=== PATIENT | female | born 1930 | race Caucasian/White ===

== ENCOUNTER 2017-03-26 15:02 | Inpatient (IN) | payer OTHER ==
--- NOTE | ~2017-03-26 | CR72 ---
[facility] A Service of [facility] & [facility] RADIOLOGY TEXT RESULTS PATIENT: HEATH DALTON LOCATION: [facility] : [birth year] UNIT #: [id number] AGE: [address]: Rolando Cox MD SEX: F ORDER DR: [id number] [facility] [address] [place], [place] [address] [id number] E MR#: [id number] Acc #: [id number] NAME: HEATH DALTON. : 1930 SEX: F STUDY DATE/TIME: 03/26/2017 14:52 UNIT: [facility] ROOM: STUDY DESCRIPTION: CR Chest Single View Portable Attending Physician: Rolando Cox M.D. Ordering Physician: Hermelindo Reis M.D. Primary Care Physician: Lachelle Moran M.D. MEDICAL IMAGING REPORT This report is preliminary unless electronic signature is present EXAM Frontal chest 03/26/2017 INDICATIONS 86-year-old female with fever, chills, short of air and cough symptoms 2 days, hypertension. TECHNIQUE Frontal chest compared with 04/24/2014. FINDINGS Cardiac silhouette borderline in size and stable. The vascularity is normal. Lung volumes are low and there is some minimal atelectasis in the right and left lung bases but no effusion or dense consolidation. No pneumothorax. IMPRESSION 1. Borderline cardiac size and low lung volumes, otherwise negative frontal chest. No significant change. Dictated by... Tyler Goodman M.D. THIS IS AN ELECTRONICALLY VERIFIED REPORT Tyelr Goodman M.D. at 03/26/2017 5:27 PM CLEO/melly TD: 03/26/2017 16:39 JOB #: [id number] MEDICAL IMAGING REPORT Page 1 of 1 COPY
--- NOTE | ~2017-03-26 | EKG ---
PATIENT: HEATH DALTON UNIT #: [id number] Ventricular Rate: 124 BPM Atrial Rate: 124 BPM P-R Interval: 200 ms QRS Duration: 108 ms Q-T Interval: 316 ms QTC Calculation(Bezet): 453 ms P [place]: 49 degrees Calculated R [place]: 38 degrees Calculated T [place]: 104 degrees Diagnosis Line: Sinus tachycardia Diagnosis Line: Incomplete left bundle branch block Diagnosis Line: ST and T wave abnormality, consider lateral ischemia Diagnosis Line: Abnormal ECG Diagnosis Line: When compared with ECG of 21-APR-2015 09:12, Diagnosis Line: Premature ventricular complexes are no longer Diagnosis Line: Present Diagnosis Line: QRS axis Shifted right Diagnosis Line: Confirmed by DAWOOD HADDAD MD ([id number]) on Diagnosis Line: 03/26/2017 4:40:56 PM INTERPRETING MD: BOO REICH
--- NOTE | ~2017-03-26 | DS ---
Unit #: [id number] #: [id number] Patient: HEATH BURDICK [id number] [address] [place], [place] [address] [id number] I MR#: [id number] NAME: HEATH BURDICK. ROOM: 557 Age: 86 Sex: F Admission Date: 03/26/2017 : 1930 Discharge Date: 03/27/2017 Attending Physician: Onelia Tavarez M.D. Primary Care Physician: Lachelle Moran M.D. DISCHARGE SUMMARY REVISED REPORT (See Addendum) PRINCIPAL DIAGNOSES 1. Sepsis, secondary to gram-negative sylvia urinary tract infection with associated bacteremia. 2. Hypovolemic/hyponatremia. 3. Mild thrombocytopenia. 4. Hypertension. 5. Hyperglycemia. 6. Hypothyroidism. 7. Hyperlipidemia. 8. Mild protein malnutrition. 9. Obesity. CONSULTANTS None. PROCEDURES Chest x-ray on March 26, 2017, with low lung volumes, no other acute findings. CLINICAL HISTORY AND HOSPITAL COURSE Ms. Burdick is an 86-year-old female, who presents to the emergency department with fever, and chills. Please refer to the H and P for further details. The patient underwent urinalysis concerning for urinary tract infection. She did have a fever of 102 at home, and was also found to be tachycardic upon presentation. She was subsequently admitted. The patient was placed on IV fluids, and empiric Rocephin. Fever has resolved and today, she states that she feels fine; however, 2 of 2 blood cultures done upon presentation are growing gram-negative rods. I did discuss this extensively with the patient and in addition to her daughter, and the patient states that she feels fine and she is going to go home. I have discussed with the patient, I am going to place on Vantin therapy for 2 weeks, but I do not recommend discharge, as she must leave the hospital against medical advice. Again, I placed her on Vantin. I will follow-up cultures tomorrow and contact family if the antibiotics are inappropriate. I am also going to repeat blood cultures this morning, if the patient is agreeable. Please note: The patient has had some significant hyperglycemia throughout hospitalization with blood sugars running 170 to 190. Unit #: [id number] #: [id number] Patient: HEATH BURDICK Hemoglobin A1C of blood and lab is currently pending, and this can be further evaluated as an outpatient. I was contacted by the patient's [id number] yesterday afternoon that the Vantin prescription is too expensive, and the patient was not willing to fill it. Given she received Rocephin earlier in the day, I felt it was safe to await cultures. I reviewed urine culture this morning, and this reveals what appears to be a pansensitive E-coli. Blood cultures themselves, however, are currently pending. I will continue to follow up blood cultures, but I have called the patient Omnicef 300 mg b.i.d. for 14 days, and contact the patient's [id number], Jojo Burdick. DISCHARGE CONDITION Stable. DISCHARGE STATUS Discharged home, but against medical advice. DISCHARGE MEDICATIONS 1. Vantin 200 mg p.o. b.i.d. for 14 days. 2. Diltiazem 180 mg daily. 3. Simvastatin 10 mg at bedtime. 4. Valsartan 325 mg daily. 5. Aspirin 81 mg daily. 6. Levothyroxine 50 mcg p.o. daily. DISCHARGE INSTRUCTIONS Patient instructed to follow a heart healthy low-carbohydrate diet. She can increase her activity as tolerated. FOLLOW UP The patient can present to the ER if she continues to feel bad or has recurrent fever; otherwise, she will follow-up with Dr. Moran 2 weeks. TIME SPENT ON DISCHARGE: 35 minutes. Dictated by... Paulina Courtney/sudhakar TD: 03/27/2017 22:22 JOB #: [id number] ADDENDUM Revisions and deletions made per instructions on . Dictated by... Paulina Courtney/marcus TD: 03/28/2017 12:27 JOB #: [id number] Unit #: [id number] #: [id number] Patient: HEATH BURDICK DISCHARGE SUMMARY Page 1 of 1 X Onelia Tavarez MD DISCHARGE SUMMARY
--- NOTE | ~2017-03-26 | HP ---
Unit #: [id number] #: [id number] Patient: HEATH DALTON [id number] [address] [address] [id number] I MR#: [id number] NAME: HEATH DALTON. ROOM: 38178 Age: 86 Sex: F Admission Date: 03/26/2017 : 1930 Attending Physician: Davi Griffiths M.D. Primary Care Physician: Lachelle Moran M.D. HISTORY AND PHYSICAL CHIEF COMPLAINT Weakness and chills for two days. HISTORY OF PRESENT ILLNESS The patient is an 86-year-old female with a history of hypertension and hyperlipidemia, brought to the emergency room with chills and weakness. The patient stated that patient has been having urinary frequency and urgency since Saturday. The patient also complained of fevers and chills. She denied any nausea and vomiting. The patient had a temperature of 102.1 in the emergency room. The patient was found to have a UTI and is being admitted for the above reasons. PAST MEDICAL HISTORY 1. Hyperlipidemia. 2. Hypertension. PAST SURGICAL HISTORY 1. Total abdominal hysterectomy. 2. Appendectomy. 3. Bladder repair. ALLERGIES Penicillin. HOME MEDICATIONS 1. Valsartan. 2. Diltiazem. 3. Cartia. 4. Simvastatin. 5. Levothyroxine. 6. Aspirin. FAMILY HISTORY Liver cancer. SOCIAL HISTORY She lives alone. She denies alcohol, tobacco, and any illicit drug abuse. REVIEW OF SYSTEMS A 14-point review of systems was performed and only pertinent positive findings are described above. The remaining are negative. PHYSICAL EXAMINATION GENERAL: Patient is lying in bed not in acute distress. Unit #: [id number] #: [id number] Patient: HEATH DALTON VITAL SIGNS: Temperature 98.8 and rectal is 102.1, pulse 132, respiratory rate 16, blood pressure 154/71, and saturating 95% on room air. HEENT: Head atraumatic, normocephalic. Pupils equal, round, and reactive to light and accommodation. Extraocular movements are intact. Dry mucous membranes. NECK: Supple. LUNGS: Decreased air entry at the bases. HEART: Regular rate and rhythm. ABDOMEN: Soft. Positive bowel sounds. No CVA tenderness. EXTREMITIES: No cyanosis, no clubbing. NEUROLOGIC: Alert, awake, and oriented. No gross focal motor deficit. DIAGNOSTIC STUDIES LABORATORY: Glucose 176, BUN 25, creatinine 1.1, sodium 130, potassium 3.7, chloride 100, bicarb 22, calcium 8.5, albumin 3.4, direct bilirubin 0.5, AST 28, ALT 26, and alkaline phosphatase 85. Lactic acid is 1.8. WBC 7.4, hemoglobin 15.2, hematocrit 45.4, platelets 139,000, and neutrophils 91.3. Urinalysis shows 3+ leukocyte esterase, positive nitrites, 2+ protein, 3+ blood, 5-10 urine RBCs, enumerable urine WBCs, and 4+ bacteria. IMAGING: Chest x-ray shows borderline cardiac size and low lung volumes, otherwise negative frontal chest. No significant change. ASSESSMENT 1. Urinary tract infection. 2. Hyponatremia. 3. Hypertension. PLAN Admit to observation with telemetry. Continue with IV fluids of normal saline at 75 mL/hour and antibiotic Rocephin 1 gram daily. Follow with urine culture. Repeat the labs again in the morning. Further recommendations will follow. Dictated by Paulina Khan TD: 03/26/2017 18:32 JOB #: [id number] HISTORY AND PHYSICAL Page 1 of 1 X X HISTORY AND PHYSICAL
--- NOTE | ~2017-03-26 | DS ---
Unit #: [id number] #: [id number] Patient: HEATH BURDICK [id number] [address] [place], [place] [address] [id number] I MR#: [id number] NAME: HEATH BURDICK. ROOM: 557 Age: 86 Sex: F Admission Date: 03/26/2017 : 1930 Discharge Date: 03/27/2017 Attending Physician: Onelia Tavarez M.D. Primary Care Physician: Lachelle Moran M.D. DISCHARGE SUMMARY PRINCIPAL DIAGNOSES 1. Sepsis, secondary to gram-negative sylvia urinary tract infection with associated bacteremia. 2. Hypovolemic/hyponatremia. 3. Mild thrombocytopenia. 4. Hypertension. 5. Hyperglycemia. 6. Hypothyroidism. 7. Hyperlipidemia. 8. Mild protein malnutrition. 9. Obesity. CONSULTANTS None. PROCEDURES Chest x-ray on March 26, 2017, with low lung volumes, no other acute findings. CLINICAL HISTORY AND HOSPITAL COURSE Ms. Burdick is an 86-year-old female, who presents to the emergency department with fever, and chills. Please refer to the H and P for further details. The patient underwent urinalysis concerning for urinary tract infection. She did have a fever of 102 at home, and was also found to be tachycardic upon presentation. She was subsequently admitted. The patient was placed on IV fluids, and empiric Rocephin. Fever has resolved and today, she states that she feels fine; however, 2 of 2 blood cultures done upon presentation are growing gram-negative rods. I did discuss this extensively with the patient and in addition to her daughter, and the patient states that she feels fine and she is going to go home. I have discussed with the patient, I am going to place on Vantin therapy for 2 weeks, but I do not recommend discharge, as she must leave the hospital against medical advice. Again, I placed her on Vantin. I will follow-up cultures tomorrow and contact family if the antibiotics are inappropriate. I am also going to repeat blood cultures this morning, if the patient is agreeable. Please note: The patient has had some significant hyperglycemia throughout hospitalization with blood sugars running 170 to 190. Hemoglobin A1C of blood and lab is currently pending, and this can be further evaluated as an outpatient. Unit #: [id number] #: [id number] Patient: HEATH BURDICK DISCHARGE CONDITION Stable. DISCHARGE STATUS Discharged home, but against medical advice. DISCHARGE MEDICATIONS 1. Vantin 200 mg p.o. b.i.d. for 14 days. 2. Diltiazem 180 mg daily. 3. Simvastatin 10 mg at bedtime. 4. Valsartan 325 mg daily. 5. Aspirin 81 mg daily. 6. Levothyroxine 50 mcg p.o. daily. DISCHARGE INSTRUCTIONS Patient instructed to follow a heart healthy low-carbohydrate diet. She can increase her activity as tolerated. FOLLOW UP The patient can present to the ER if she continues to feel bad or has recurrent fever; otherwise, she will follow-up with Dr. Moran 2 weeks. TIME SPENT ON DISCHARGE: 35 minutes. Dictated by... Onelia Tavarez M.D. ANTONIO/sudhakar TD: 03/27/2017 22:22 JOB #: [id number] DISCHARGE SUMMARY Page 1 of 1 X Onelia Tavarez MD X DISCHARGE SUMMARY
[2017-03-26 14:07] LABS: BASOPHIL% 0.3 % (0-2.5); EOSINOPHIL% 0.2 % (0.0-7.0); HEMATOCRIT 45.4 % (35.0-45.0); HEMOGLOBIN 15.2 gm/dL (12.0-16.0); LYMPHOCYTE# 0.4 X10e3 (1.0-3.5); LYMPHOCYTE% 5.6 % (17.0-45.0); MEAN CORPUSCULAR HEMOGLOBIN 32.5 PG (28-34); MEAN CORPUSCULAR HGB CONC 33.5 g/dL (30-36); MEAN PLATELET VOLUME 8.2 FL (6.5-11.5); MONOCYTE# 0.2 X10e3 (0-1.0); MONOCYTE% 2.6 % (3.0-12.0); NEUTROPHIL# 6.8 X10e3 (1.5-7.1); NEUTROPHIL% 91.3 % (40-75); PLATELET COUNT 139 X10e3 (140-420); RED BLOOD COUNT 4.68 X10e (3.90-5.30); RED CELL DISTRIBUTION WIDTH 13.8 % (11.0-15.5); WHITE BLOOD COUNT 7.4 X10e3 (4.0-10.5)
[2017-03-26 14:09] LABS: DIFF IND NO
[2017-03-26 14:27] LABS: ALBUMIN SERUM 3.4 g/dL (3.5-5.0); BILIRUBIN, DIRECT 0.4 mg/dL (0.0-0.2); BILIRUBIN,TOTAL 1.4 mg/dL (0.2-2.0); BUN/CREATININE RATIO 22.72; CALCIUM SERUM 8.5 mg/dL (8.4-10.2); CREATININE SERUM 1.1 mg/dL (0.6-1.4); GLOM FILT RATE Estimated 45.1 mL/min (>60); POTASSIUM 3.7 mmol/L (3.5-5.1); PROTEIN TOTAL SERUM 6.7 g/dL (6.0-8.3)
[~2017-03-26 15:02] MED LIST: ASPIRIN PO; CARDIZEM PO; CELEXA PO; DIOVAN PO; IBUPROFEN600 MG; IBUPROFEN600 MG PO; LIPITOR PO; NEXIUM PO; PHENERGAN25 MG PO; PRILOSEC20 MG PO; SIMVASTATIN20 MG PO; SYNTHROID PO; ZITHROMAX500 MG PO
[2017-03-26 15:33] LABS: URINE SOURCE CLEAN CATCH
[2017-03-26 15:39] LABS: URINE APPEARANCE TURBID; URINE BILIRUBIN NEG (NEG); URINE BLOOD 3+ (NEG); URINE COLOR YELLOW; URINE GLUCOSE NEG (NEG); URINE KETONE NEG (NEG); URINE LEUKOCYTE ESTERASE 3+ (NEG); URINE NITRATE POS (NEG); URINE PH 5.5 (5-8); URINE PROTEIN 2+ (NEG); URINE SPECIFIC GRAVITY 1.013 (1.003-1.035)
[2017-03-26 15:41] LABS: CULTURE INDICATED? YES; U HYALINE CASTS AUWI 0-2 /[LPF]; URINE BACTERIA AUWI 4+ (NEGATIVE); URINE SQUAMOUS EPITHELIAL CELL OCC /[HPF]; UWBCS1 AUWI INNUM (0-5)
[2017-03-26 16:02] LABS: POC - CKMB <1.0 ng/mL (0.0-7.9); POC - TROPONIN <0.05 ng/mL (<=0.05)
[2017-03-26] MEDS ORDERED: VALSARTAN320 MG PO (18:07)
[2017-03-26] MEDS ORDERED: SIMVASTATIN10 MG PO (18:08)
[2017-03-26] MEDS ORDERED: DILTIAZEM 24HR180 M1 PO (18:08)
[2017-03-26] MEDS ORDERED: LEVOTHYROXINE50 MCG PO (18:08)
[2017-03-26] MEDS ORDERED: ASPIRIN81 MG PO (18:08)
[2017-03-27 05:32] LABS: HEMATOCRIT 43.3 % (35.0-45.0); HEMOGLOBIN 14.4 gm/dL (12.0-16.0); MEAN CELL VOLUME 97.6 FL (83-96); MEAN CORPUSCULAR HEMOGLOBIN 32.4 PG (28-34); MEAN CORPUSCULAR HGB CONC 33.2 g/dL (30-36); MEAN PLATELET VOLUME 9.2 FL (6.5-11.5); RED BLOOD COUNT 4.44 X10e (3.90-5.30); WHITE BLOOD COUNT 8.8 X10e3 (4.0-10.5)
[2017-03-27 06:41] LABS: CALCIUM SERUM 8.2 mg/dL (8.4-10.2); GLOM FILT RATE Estimated 50.6 mL/min (>60)
== END 2017-03-27 12:35 | disposition left against medical advice (07) | DRG 872 ==
LOC: CED 15:02 → CEDOF 17:20 → C5B 19:58
PROVIDERS: Emergency Medicine; Internal Medicine
DX: A41.50 Gram-negative sepsis, unspecified (principal); D69.6 Thrombocytopenia, unspecified; N39.0 Urinary tract infection, site not specified; E86.1 Hypovolemia; E87.1 Hypo-osmolality and hyponatremia; E44.1 Mild protein-calorie malnutrition; I10 Essential (primary) hypertension; R73.9 Hyperglycemia, unspecified; E03.9 Hypothyroidism, unspecified; E78.5 Hyperlipidemia, unspecified; E66.9 Obesity, unspecified; Z90.710 Acquired absence of both cervix and uterus; Z88.0 Allergy status to penicillin; Z79.82 Long term (current) use of aspirin; Z68.29 Body mass index [BMI] 29.0-29.9, adult
CPT/HCPCS: 71010; 80048; 80076; 81003; 82553; 82947; 83036; 83605; 84484; 85025; 85027; 87040; 87077; 87086; 87088; 87186; 93005; 96361; 96374; 96375; 99285; J0696; J1650; J1956; J2405

== ENCOUNTER → 2017-04-29 | Outpatient (CLI) | payer OTHER ==
[~2017-04-29] MED LIST changes: +ASPIRIN81 MG PO; +DILTIAZEM 24HR180 M1 PO; +LEVOTHYROXINE50 MCG PO; +SIMVASTATIN10 MG PO; +VALSARTAN320 MG PO
--- NOTE | ~2017-04-29 | CR63 ---
[facility] A Service of [facility] & [facility] RADIOLOGY TEXT RESULTS PATIENT: HEATH DALTON LOCATION: [facility] : [birth year] UNIT #: [id number] AGE: [address]: LUH MOREIRA APRN SEX: F ORDER DR: [id number] [facility] [address] [place], [place] [address] [id number] MR#: [id number] Acc #: [id number] NAME: HEATH DALTON. : 1930 SEX: F STUDY DATE/TIME: 04/29/2017 13:57 UNIT: [facility] ROOM: STUDY DESCRIPTION: CR Chest 2 View Attending Physician: Luh Moreira Np Referring Physician: Luh Moreira Np Ordering Physician: Luh Moreira Np Primary Care Physician: Lachelle Moran M.D. MEDICAL IMAGING REPORT This report is preliminary unless electronic signature is present EXAM 2-view chest 04/29/2017. HISTORY 86-year-old female with cough for 2 weeks. Essential hypertension. COMPARISON Chest 03/26/2017. FINDINGS 2 views of the chest demonstrate clear lungs. No pleural effusion or pneumothorax. Heart size upper limits of normal. Mediastinum and pulmonary vasculature are unremarkable. IMPRESSION No acute cardiopulmonary findings. Dictated by... Marcelo Izquierdo M.D. THIS IS AN ELECTRONICALLY VERIFIED REPORT Marcelo Izquierdo M.D. at 04/30/2017 2:30 PM ADELFO/marianna TD: 04/30/2017 12:20 JOB #: [id number] MEDICAL IMAGING REPORT Page 1 of 1 COPY
== END | disposition home or self-care (01) ==
LOC: CRAD 13:42
DX: R05 Cough (principal); I10 Essential (primary) hypertension
CPT/HCPCS: 71020